=== PATIENT | female | born 1960 | race Two or more races ===

== ENCOUNTER 2022-01-09 21:06 | Inpatient (IN) | payer MEDICAID ==
[~2022-01-09] VITALS: Ht 215.9 cm; Wt 74.8 kg
[2022-01-09 21:30] LABS: BASOPHILS % 0.5 % (0.0-2.0); EOSINOPHILS % 0.8 % (0.0-5.0); LYMPHOCYTES % 41.1 % (20.0-50.0); MEAN CORPUSCULAR HEMOGLOBIN 31.2 pg (28.0-32.0); MEAN PLATELET VOLUME 9.7 fl (7.4-10.4); MONOCYTES % 3.1 % (2.0-8.0); NEUTROPHILS % 54.5 % (40.0-76.0); PLATELET 267 x1000/uL (130-400); RED BLOOD CELL COUNT 3.85 mill/uL (4.2-5.4); RED CELL DISTRIBUTION WIDTH 13.7 % (11.6-14.6)
[2022-01-09] MEDS ORDERED: IPRATROPIUM/ALBUTEROL 0.5-3(2.5)MG/3ML NEB HHN ONE (21:30)
[2022-01-09 21:50] LABS: CHLORIDE 110 mEq/L (98-107)
[2022-01-10] MEDS ORDERED: GUAIFENESIN 200MG/10ML SUGAR FREE UDC PO PRN (08:15)
[2022-01-10] MEDS ORDERED: HYDRALAZINE 20MG/ML VIAL IV PRN (08:15)
[2022-01-10] MEDS ORDERED: LORAZEPAM 2MG/ML CPJ IV PRN (08:15)
[2022-01-10] MEDS ORDERED: CLONIDINE 0.1MG TABLET PO PRN (08:15)
[2022-01-10] MEDS ORDERED: ACETAMINOPHEN 325MG TABLET PO PRN (08:15)
[2022-01-10] MEDS ORDERED: ONDANSETRON HCL 4MG/2ML INJ IV PRN (08:15)
[2022-01-10] MEDS: FUROSEMIDE 40MG/4ML VIAL IVP SCH (12:51)
[2022-01-10] MEDS: ENOXAPARIN 40MG/0.4ML SYR SUBCUT SCH (12:51)
[2022-01-10] MEDS: LISINOPRIL 10MG TABLET PO SCH ×2 (13:04→21:36)
[2022-01-10] MEDS: CARVEDILOL 12.5MG TABLET PO SCH ×2 (13:05→21:37)
[2022-01-10 13:34] LABS: CREATINE KINASE MB FRACTION 4.1 ng/mL (0.5-3.6)
[2022-01-10] MEDS: IPRATROPIUM/ALBUTEROL 0.5-3(2.5)MG/3ML NEB HHN SCH ×2 (15:01→20:42)
[2022-01-10] MEDS ORDERED: LIDOCAINE HCL/PF 1% 2ML VIAL ONE (15:43)
[2022-01-10 16:00] VITALS: BP 164/78
[2022-01-10 16:38] LABS: BG BASE EXCESS -2.7 mmol/L (-2.0-2.0); BG CARBOXYHEMOGLOBIN 0.3 % (0.5-1.5); BG DEOXYHEMOGLOBIN 8.4 % (0.0-5.0); BG FRACTION INSPIRED OXYGEN 21; BG HCO3 ACT 21.3 mmol/L (22.0-26.0); BG METHEMOGLOBIN 0.3 % (0.0-1.5); BG OXYGEN SATURATION 91.5 % (92.0-98.5); BG PCO2 34.4 mmHg (35.0-45.0); BG PH 7.409 (7.350-7.450); BG SAMPLE SITE LEFT RADIAL; BG TOTAL HEMOGLOBIN 12.1 g/dL (12.0-18.0); BG VENT MODE ROOM AIR
[2022-01-10 17:37] LABS: HEPATITIS B SURFACE ANTIGEN NEGATIVE
[2022-01-10] MEDS ORDERED: INFLUENZA VACCINE 05/PF 0.5 ML SYRINGE IM ONE (19:15)
[2022-01-10] MEDS ORDERED: PNEUMOCOCCAL 23-VAL P-SAC VAC 0.5 ML IM ONE (19:30)
[2022-01-10 20:00] VITALS: BP 137/79
[2022-01-10] MEDS ORDERED: DEXTROSE 50% WATER 50ML SYRINGE IV PRN (21:15)
[2022-01-11] VITALS: BP 124/54
[2022-01-11 00:10] LABS: CREATINE KINASE MB FRACTION 2.4 ng/mL (0.5-3.6)
[2022-01-11] MEDS: IPRATROPIUM/ALBUTEROL 0.5-3(2.5)MG/3ML NEB HHN SCH ×4 (00:16→12:09)
[2022-01-11 04:00] VITALS: BP 135/68
[2022-01-11] MEDS ORDERED: BLOOD SUGAR DIAGNOSTIC STRIP TEST SCH (07:10)
[2022-01-11] MEDS ORDERED: INSULIN LISPRO 100 UNITS/ML SUBCUT SCH (07:40)
[2022-01-11 08:00] VITALS: BP 134/68
[2022-01-11] MEDS: LISINOPRIL 10MG TABLET PO SCH (08:42)
[2022-01-11] MEDS: CARVEDILOL 12.5MG TABLET PO SCH (08:42)
[2022-01-11] MEDS: FUROSEMIDE 40MG/4ML VIAL IVP SCH (08:43)
[2022-01-11] MEDS: ENOXAPARIN 40MG/0.4ML SYR SUBCUT SCH (08:43)
[2022-01-11 10:12] LABS: BASOPHILS % 0.8 % (0.0-2.0); CHLORIDE 109 mEq/L (98-107); EOSINOPHILS % 1.4 % (0.0-5.0); HEMATOCRIT. 35.2 % (36.0-48.0); HEMOGLOBIN. 12.1 g/dL (12.0-16.0); LYMPHOCYTES % 38.7 % (20.0-50.0); MEAN CORPUSCULAR HEMOGLOBIN 32.2 pg (28.0-32.0); MEAN CORPUSCULAR VOLUME 93.6 fL (81.0-99.0); MEAN PLATELET VOLUME 10.2 fl (7.4-10.4); MONOCYTES % 4.9 % (2.0-8.0); NEUTROPHILS % 54.2 % (40.0-76.0); PLATELET 238 x1000/uL (130-400); RED BLOOD CELL COUNT 3.77 mill/uL (4.2-5.4); RED CELL DISTRIBUTION WIDTH 13.8 % (11.6-14.6)
[2022-01-11] MEDS ORDERED: ALBU18HF2 IH (11:35)
[2022-01-11] MEDS ORDERED: COR12 PO (11:35)
[2022-01-11] MEDS ORDERED: LISI20TA31 PO (11:35)
[2022-01-11] MEDS ORDERED: FURO40TA5 PO (11:35)
[2022-01-11 11:46] VITALS: BP 134/68
[2022-01-11 13:55] VITALS: BP 138/65
== END 2022-01-11 14:10 | disposition home or self-care (01) | DRG 194 ==
LOC: ER 21:06 → MICUSO 23:39 → 8WST 01-10 13:55
PROVIDERS: ADMIT Internal Medicine; ATTEND Internal Medicine
PROC: 5A09357 Assistance with Respiratory Ventilation, Less than 24 Consecutive Hours, Continuous Positive Airway Pressure (ICD-10-PCS; principal; 2022-01-09)
DX: I11.0 Hypertensive heart disease with heart failure (principal); J96.00 Acute respiratory failure, unspecified whether with hypoxia or hypercapnia; E44.1 Mild protein-calorie malnutrition; J44.1 Chronic obstructive pulmonary disease with (acute) exacerbation; R16.0 Hepatomegaly, not elsewhere classified; I50.23 Acute on chronic systolic (congestive) heart failure; K76.0 Fatty (change of) liver, not elsewhere classified; Z20.822 Contact with and (suspected) exposure to COVID-19; M32.9 Systemic lupus erythematosus, unspecified; E78.5 Hyperlipidemia, unspecified; R73.03 Prediabetes; N20.0 Calculus of kidney; Z82.3 Family history of stroke; Z86.74 Personal history of sudden cardiac arrest; Z87.891 Personal history of nicotine dependence; Z23 Encounter for immunization; Z68.1 Body mass index [BMI] 19.9 or less, adult
CPT/HCPCS: 36415; 36600; 71045; 76705; 80053; 80061; 82375; 82553; 82805; 82962; 83036; 83880; 84443; 84484; 85025; 86705; 86709; 86803; 87340; 87426; 90686; 90732; 93005; 93306; 93970; 94640; 94660; 99291; J1650; J1940; J3490